=== PATIENT | male | born 1965 | race African-American/Black ===

== ENCOUNTER 2016-12-26 00:46 | Emergency (ER) | payer SELFPAY ==
[~2016-12-26] VITALS: Ht 175.3 cm; Wt 73.0 kg
[~2016-12-26 00:46] MED LIST: BACT800T5 PO; CLIN1CAP5 PO; HYDR-3580 PO
[2016-12-26 00:51] VITALS: BP 122/81; PULSE 67; RESP 18; TEMP 98.1; O2SAT 98
[2016-12-26] MEDS ORDERED: DOXY100C PO (01:19)
[2016-12-26] MEDS ORDERED: BACT800T5 PO (01:19)
--- NOTE | 2016-12-26 01:19 | PD ---
HPI Chief Complaint: Skin Problem Time Seen by Provider: 01:07 Travel History International Travel<30 days: No Contact w/Intl Traveler<30days: No Traveled to known affect area: No History of Present Illness HPI The patient is a 51-year-old male that noticed an infection where the corner of his belt buckle digs into a skin since Wednesday. He has had similar infections before. He cannot remember when his last tetanus shot was. He has no medication allergy. 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 We checked in his records and found that he had a tetanus shot in 2012. PFSH Past Medical History Cancer: No Cardiovascular Problems: No Diabetes: No Diminished Hearing: No Endocrine: No Gastrointestinal Disorders: Yes (OCCAS ACID REFLUX ) Genitourinary: No Hepatitis: No Hiatal Hernia: No Hypertension: No Immune Disorder: No Inguinal Hernia: Yes Musculoskeletal: No Neurologic: No Psychiatric: No Reproductive: No Respiratory: No Thyroid Disease: No Past Surgical History Abdominal Surgery: Yes (LT INGUINAL HERNIA) AICD: No Body Medical Devices: MESH INGUINAL HERNIA REPAIR (LEFT SIDE) Joint Replacement: No Pacemaker: No Other Surgery: Yes (r achilles tendon repair) Social History Alcohol Use: Yes (OCCASIONAL) Tobacco Use: Yes (07/29 PPD) Substance Use: No Allergies-Medications (Allergen,Severity, Reaction): Coded Allergies: Cauliflower (Verified Adverse Reaction, Intermediate, itch, 12/26/16) Pork (Verified Adverse Reaction, Unknown, no allergy, 12/26/16) does not eat Reported Meds & Prescriptions Reported Meds & Active Scripts Active Review of Systems Except as stated in HPI: all other systems reviewed are Neg Physical Exam Narrative GENERAL: Well-nourished, well-developed patient in minimal apparent distress with his draining abscess in the skin of the left lower abdomen. His vital signs are normal. SKIN: Focused skin assessment warm/dry. There is a 1 cm draining abscess of the left lower quadrant of the abdomen exactly where the corner of the belt buckle apparently digs into the skin. There is postinflammatory hyperpigmentation in the area of the belt buckle indicating that the belt buckle has irritated his skin before. It is possible that he also has a nickel/ chromate allergy. HEAD: Normocephalic. EYES: No scleral icterus. No injection or drainage. NECK: Supple, trachea midline. No JVD or lymphadenopathy. CARDIOVASCULAR: Regular rate and rhythm without murmurs, gallops, or rubs. RESPIRATORY: Breath sounds equal bilaterally. No accessory muscle use. GASTROINTESTINAL: Abdomen soft, non-tender, nondistended. MUSCULOSKELETAL: No cyanosis, or edema. BACK: Nontender without obvious deformity. No CVA tenderness. Data Data Last Documented VS Vital Signs Date Time Temp Pulse Resp B/P Pulse Ox O2 Delivery O2 Flow Rate FiO2 12/26/16 00:51 98.1 67 18 122/81 98 MDM Medical Decision Making Medical Screen Exam Complete: Yes Emergency Medical Condition: Yes Medical Record Reviewed: Yes Differential Diagnosis Spider bite, MRSA abscess, cellulitis, nickel, and allergy Narrative Course The patient has no recollection of a spider bite. This is an unusual area to have a spider bite and this area corresponds completely to where the corner of the belt buckle within 10 on the skin. It is possible that the patient has a nickel chromate allergy because of his postinflammatory hyperpigmentation around the area of the belt buckle. Impression: MRSA abscess, possible nickel chromate allergy Diagnosis Primary Impression: MRSA colonization Additional Impression: Abscess Additional Instructions: It would be nice if you could find a nonmetallic belt buckle to wear so that the belt buckle does not begin to your skin. You may be allergic to nickel or chromate in the belt buckle itself. Use warm compresses daily and take the antibiotics twice daily. It is helpful to clean the wound with peroxide daily. Med/Other Pt SpecificInfo: Prescription(s) given Scripts Sulfamethoxazole-Trimethoprim (Bactrim DS)800-160 Mg Tab1 Tab PO BID #20 TAB Ref 0 Prov:Brian Roes MD 12/26/16 Doxycycline Hyclate 100 Mg [id number] Mg PO BID #20 CAP Ref 0 Prov:Brian Rose MD 12/26/16 Disposition: 01 DISCHARGE HOME Condition: Stable Brian oRse MD Dec 26, 2016 01:19
[2016-12-26] MEDS ORDERED: DOXYCYCLINE HYCLATE 100 MG CAP PO ONE (01:30)
[2016-12-26] MEDS ORDERED: SULFAMETHOXAZOLE-TRIMETHOPRIM DS 800-160 MG TAB PO ONE (01:30)
== END 2016-12-26 01:37 | disposition home or self-care (01) ==
LOC: PHED 00:46
DX: L02.211 Cutaneous abscess of abdominal wall (principal); Z22.322 Carrier or suspected carrier of Methicillin resistant Staphylococcus aureus; F17.210 Nicotine dependence, cigarettes, uncomplicated
CPT/HCPCS: 99284